=== PATIENT | male | born 1960 | race Caucasian/White ===

== ENCOUNTER 2017-05-02 20:33 | Emergency (ER) | payer OTHER ==
[~2017-05-02 20:33] MED LIST: BACTRIM DS TABL1 TA2 PO; KEFLEX500 M1 PO; NO MEDICATIONS
== END 2017-05-02 23:30 | disposition home or self-care (01) ==
LOC: CFTX 20:33 → CED 20:33 → CFTX 22:27
DX: S61.512A Laceration without foreign body of left wrist, initial encounter (principal); F17.210 Nicotine dependence, cigarettes, uncomplicated; Z23 Encounter for immunization; W45.8XXA Other foreign body or object entering through skin, initial encounter; Y92.69 Other specified industrial and construction area as the place of occurrence of the external cause; Y99.0 Civilian activity done for income or pay
CPT/HCPCS: 12001; 90471; 90715; 99283

== ENCOUNTER → 2017-05-06 | Outpatient (CLI) | payer OTHER ==
--- NOTE | ~2017-05-06 | US128 ---
[id number] [facility] [address] [facility]. [place], [place] [address] [id number] O MR#: [id number] Acc #: [id number] NAME: COLT RACHER : 1960 SEX: M STUDY DATE/TIME: 05/06/2017 13:34 UNIT: [facility]US ROOM: STUDY DESCRIPTION: Thyroid Attending Physician: Genaro Dimas M.D. Referring Physician: Genaro Dimas M.D. Ordering Physician: Genaro Dimas M.D. Primary Care Physician: Wilber Nieto M.D. 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 Marked weight loss. FINDINGS The right thyroid lobe measured 2 cm x 7 mm x 1.5 cm, while the left lobe measured 3.7 cm x 1 cm x 1.6 cm. The isthmus measured 4 mm in the AP direction. Both thyroid lobes are homogeneous in echotexture. There is a solitary, 5 mm, predominately cystic lesion in the lower pole of the left thyroid lobe. There are no masses extrinsic to the thyroid. Normal blood flow is seen throughout both thyroid lobes. IMPRESSION Solitary, predominantly cystic, 5 mm nodule lower pole left thyroid lobe. Otherwise, negative thyroid ultrasound. Dictated by... Casey Naylor M.D. THIS IS AN ELECTRONICALLY VERIFIED REPORT Casey Naylor M.D. at 05/09/2017 10:15 AM ADRIAN/kelli TD: 05/06/2017 20:18 JOB #: [id number] MEDICAL IMAGING REPORT Page 1 of 1 COPY
== END | disposition home or self-care (01) ==
LOC: CGUS 13:03
DX: C32.9 Malignant neoplasm of larynx, unspecified (principal); E04.1 Nontoxic single thyroid nodule
CPT/HCPCS: 36415; 76536; 84436; 84443